=== PATIENT | male | born 1970 | race Caucasian/White ===

== ENCOUNTER 2017-11-15 09:03 | Emergency (ER) | payer MEDICAID ==
[~2017-11-15] VITALS: Ht 172.7 cm; Wt 70.0 kg
[2017-11-15 09:05] VITALS: BP 0/0
[2017-11-15] MEDS ORDERED: EPINEPHRINE 0.1MG/ML (1:10,000) 10ML SYR ONE (14:59)
== END 2017-11-15 11:59 | disposition expired ==
LOC: ER 09:51
DX: I46.9 Cardiac arrest, cause unspecified (principal); Z85.038 Personal history of other malignant neoplasm of large intestine; Z93.3 Colostomy status
CPT/HCPCS: 92950; 99285; J3490